=== PATIENT | female | born 2000 | race Hispanic/Latino ===

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

== ENCOUNTER 2019-02-22 19:15 | Inpatient (IN) | payer OTHER ==
[~2019-02-22 19:15] MED LIST: Bupivacaine/Epinephrine 0.25% 30 ML VIAL ONE
[2019-02-22] MEDS ORDERED: Promethazine HCl 25 MG/ML VIAL IM PRN (20:00)
[2019-02-22] MEDS ORDERED: hydrALAZINE 20 MG/ML VIAL SLOW IVP PRN (20:00)
[2019-02-22] MEDS ORDERED: Methylergonovine 0.2 MG/ML VIAL IM PRN (20:00)
[2019-02-22] MEDS ORDERED: Misoprostol 200 MCG TAB PR PRN (20:00)
[2019-02-22] MEDS ORDERED: Lidocaine 1% (PF) 30 ML VIAL SC PRN (20:00)
[2019-02-22] MEDS ORDERED: Ondansetron PF 4 MG/2 ML Vial IVP PRN (20:00)
[2019-02-22] MEDS ORDERED: Diphenoxylate HCl/Atropine Tablet PO PRN (20:00)
[2019-02-22] MEDS ORDERED: HYDROcodone/Acetaminophen 5/325 mg Tablet PO PRN (20:00)
[2019-02-22] MEDS ORDERED: Ibuprofen 800 MG TAB PO PRN (20:00)
[2019-02-22] MEDS ORDERED: NS / Oxytocin 40 units/1000ml 1,000 ML IV PRN (20:00)
[2019-02-22] MEDS ORDERED: Carboprost 250 MCG/ML AMP IM PRN (20:00)
[2019-02-22] MEDS ORDERED: Butorphanol Tartrate 1 MG/ML VIAL SLOW IVP PRN (20:00)
[2019-02-22 20:11] VITALS: BMI 41.1
[2019-02-22] MEDS: Lactated Ringer's 1,000 ML IV SCH (20:18)
[2019-02-22] MEDS ORDERED: NS w/ Oxytocin 10 units 500 ML IV SCH ×2 (20:30)
[2019-02-22 20:34] LABS: Hemoglobin 11.2 g/dL (12.0-16.0); Mean Corpuscular Hemoglobin 27.9 pg (25.0-35.0); Platelet Count 221 thou/uL (130-400); RBC Distribution Width 13.7 % (11.5-14.5); Red Blood Cell (RBC) Count 4.03 mill/uL (4.00-5.20); White Blood Cell (WBC) Count 8.5 thou/uL (4.8-10.8)
[2019-02-22 21:14] LABS: Syphilis Antibody Nonreactive (Nonreactive); Syphilis Antibody Index 0.03 S/CO (<1.00 Non-Reactive)
[2019-02-22 22:39] LABS: Hep B Surf Ag Non-Reactive S/CO (NonReactive)
[2019-02-22] MEDS: Misoprostol 100 MCG TAB PO SCH (23:28)
[2019-02-23] MEDS ORDERED: Lidocaine 1% (PF) 30 ML VIAL ONE (12:54)
[2019-02-23] MEDS ORDERED: NS / Oxytocin 40 units/1000ml 1,000 ML ONE (12:54)
[2019-02-23] MEDS ORDERED: Fentanyl 4 mcg/Bup 0.1% Cadd 100 ML ONE (12:55)
[2019-02-23] MEDS: Lactated Ringer's 1,000 ML IV SCH ×2 (13:20→14:14)
[2019-02-23] MEDS ORDERED: Fentanyl 100 MCG/2 ML VIAL ONE ×2 (13:32)
[2019-02-23] MEDS: Misoprostol 100 MCG TAB PO SCH (14:01)
[2019-02-23] MEDS ORDERED: Fentanyl 100 MCG/2 ML VIAL EPIDURAL PRN (14:18)
[2019-02-23] MEDS ORDERED: Acetaminophen 325 MG TAB PO PRN (14:18)
[2019-02-23] MEDS ORDERED: Ondansetron PF 4 MG/2 ML Vial IVP PRN ×2 (14:18→15:07)
[2019-02-23] MEDS ORDERED: ePHEDrine/0.9% NaCl/PF SYRINGE 50 mg/10 ml SLOW IVP PRN (14:18)
[2019-02-23] MEDS ORDERED: Naloxone HCl 0.4 mg/ml Vial IVP PRN ×2 (14:18)
[2019-02-23] MEDS ORDERED: diphenhydrAMINE 50 MG/ML VIAL IVP PRN (14:18)
[2019-02-23] MEDS ORDERED: Lactated Ringer's 500 ML IV PRN (14:18)
[2019-02-23] MEDS ORDERED: Promethazine HCl 25 MG/ML VIAL IM PRN ×2 (14:18→15:07)
[2019-02-23] MEDS ORDERED: Fentanyl 4 mcg/Bupivacaine 0.1% Cassette 100 ML EPIDURAL SCH (14:30)
[2019-02-23] MEDS ORDERED: Communication Order-Pharmacy FS SCH (14:30)
[2019-02-23] MEDS ORDERED: hydrALAZINE 20 MG/ML VIAL SLOW IVP PRN (15:07)
[2019-02-23] MEDS ORDERED: Preparation H Ointment 28 GM TUBE PR PRN (15:07)
[2019-02-23] MEDS ORDERED: NS / Oxytocin 40 units/1000ml 1,000 ML IV SCH (15:07)
[2019-02-23] MEDS ORDERED: Bisacodyl 10 MG SUPP PR PRN (15:07)
[2019-02-23] MEDS ORDERED: Benzocaine-Menthol 82.5 ML CAN TOP PRN (15:07)
[2019-02-23] MEDS ORDERED: Milk Of Magnesia 30 ML UDCUP PO PRN (15:07)
[2019-02-23] MEDS ORDERED: diphenhydrAMINE 25 MG CAP PO PRN (15:07)
[2019-02-23] MEDS ORDERED: Adacel (T-DAP) 0.5 ML SYRINGE IM ONE (15:07)
[2019-02-23] MEDS ORDERED: HYDROcodone/Acetaminophen 5/325 mg Tablet PO PRN ×2 (15:07)
[2019-02-23] MEDS ORDERED: Lanolin Ointment 7 GM TUBE TOP PRN (15:07)
[2019-02-23] MEDS: Ferrous Sulfate 325 MG TAB PO SCH (18:44)
[2019-02-23] MEDS: Ibuprofen 800 MG TAB PO SCH (21:37)
[2019-02-23] MEDS: Docusate Calcium (SURFAK) 240 MG CAP PO SCH (21:37)
[2019-02-24] MEDS: Ibuprofen 800 MG TAB PO SCH ×2 (05:28→14:20)
[2019-02-24 06:08] LABS: Hemoglobin 10.1 g/dL (12.0-16.0); Mean Corpuscular HGB CONC 33.1 g/dL (32.0-36.0); Mean Corpuscular Hemoglobin 27.6 pg (25.0-35.0); Mean Corpuscular Volume 83.4 fL (78.0-98.0); Mean Platelet Volume 7.6 fL (7.4-10.4); Platelet Count 208 thou/uL (130-400); RBC Distribution Width 13.8 % (11.5-14.5); Red Blood Cell (RBC) Count 3.66 mill/uL (4.00-5.20); White Blood Cell (WBC) Count 10.4 thou/uL (4.8-10.8)
[2019-02-24] MEDS: Ferrous Sulfate 325 MG TAB PO SCH ×2 (06:58→15:59)
[2019-02-24] MEDS: Docusate Calcium (SURFAK) 240 MG CAP PO SCH (08:52)
[2019-02-24 08:55] VITALS: TEMP 98.2
[2019-02-24] MEDS ORDERED: Prenatal Vitamin 1 TAB PO SCH (09:00)
[2019-02-24 16:27] VITALS: BP 110/58
== END 2019-02-24 18:15 | disposition home or self-care (01) | DRG 807 ==
LOC: L&D 19:23 → 3SW 02-23 18:00
PROVIDERS: ADMIT Family Medicine; ATTEND Family Medicine
PROC: 10907ZC Drainage of Amniotic Fluid, Therapeutic from Products of Conception, Via Natural or Artificial Opening (ICD-10-PCS; principal; 2019-02-23)
PROC: 10E0XZZ Delivery of Products of Conception, External Approach (ICD-10-PCS; 2019-02-23)
PROC: 3E033VJ Introduction of Other Hormone into Peripheral Vein, Percutaneous Approach (ICD-10-PCS; 2019-02-23)
DX: O71.82 Other specified trauma to perineum and vulva (principal); Z37.0 Single live birth; Z3A.39 39 weeks gestation of pregnancy
CPT/HCPCS: 36415; 51702; 85027; 86780; 86850; 86900; 86901; 87340; J2001; J2590; J3010

== ENCOUNTER 2020-03-06 08:09 | Outpatient (CLI) | payer OTHER ==
--- NOTE | 2020-03-06 09:30 | ULT ---
OB ULTRASOUND: HISTORY: anatomy. FINDINGS: A single live intrauterine gestation is seen with measurements corresponding to an estimated gestatio nal age of 31 weeks 3 days and TIMUR at 07/14/2020. The estimated weight measures 427 gm or 15 ou nces (63% by Hadlock criteria). Biometry: BPD 4.90 cm, 20 weeks 6 days HC 18.76 cm, 21 weeks 1 day AC 16.58 cm, 21 weeks 5 days FL 3.62 cm, 21 weeks 4 days heart rate measures 144 b.p.m. HELIO measures 15.3 cm. Placenta is anteriorly located without e vidence of placenta previa. Cervical length measures 6.2 cm. A 3-vessel cord, cord insertion, kidneys, bladder, stomach, 4-chamber heart, lateral ventricles , cerebellum, spine, lips/nose, upper and lower extremities are visualized. No definite anomal ies are seen. The maternal adnexa is not visualized. IMPRESSION: Single live intrauterine of 21 weeks 3 days estimated gestational age and estimated date of delivery at 07/14/2020. POS: GAGE
== END 2020-03-06 08:10 | disposition home or self-care (01) ==
LOC: BICULT 08:09
PROVIDERS: ATTEND Family Medicine
DX: Z34.82 Encounter for supervision of other normal pregnancy, second trimester (principal); Z3A.21 21 weeks gestation of pregnancy
CPT/HCPCS: 76805